=== PATIENT | male | born 1955 | race Hispanic/Latino ===

== ENCOUNTER → 2024-01-14 | Day surgery (SDC) | payer MEDICARE ==
[2024-01-11 09:56] LABS: BASOPHILS # (AUTO) 0.1 (0.0-0.1); BASOPHILS % 0.9 % (0.0-1.0); EOSINOPHILS # (AUTO) 0.2 (0.0-0.4); EOSINOPHILS % 2.5 % (0.0-6.0); HEMATOCRIT 42.6 % (38.2-49.6); LYMPHOCYTES # (AUTO) 2.4 (1.0-3.2); LYMPHOCYTES % 30.1 % (18.0-39.1); MEAN CORPUSCULAR HEMOGLOBIN 29.2 pg (28-32); MEAN CORPUSCULAR HGB CONC 32.9 g/dL (31-35); MEAN CORPUSCULAR VOLUME 88.8 fL (81-99); MONOCYTES # (AUTO) 0.7 (0.2-0.8); MONOCYTES % 8.7 % (4.4-11.3); NEUTROPHILS # (AUTO) 4.6 (2.1-6.9); NEUTROPHILS % 57.3 % (38.7-80.0); PLATELET COUNT 237 x10e3/uL (140-360); RED CELL DISTRIBUTION WIDTH 14.8 % (11.7-14.4); WHITE BLOOD COUNT 8.08 x10e3/uL (4.8-10.8)
[~2024-01-14] MED LIST: CRESTOR40 MG PO; FENTANYL CITRATE/PF 100MCG/2 ML INJ ONE; FLOMAX0.4 MG PO; SIMETHICONE 40 MG/0.6 ML BTL ONE
[2024-01-14] MEDS: LACTATED RINGER'S 1,000 ML ONE (06:02)
[2024-01-14 08:01] VITALS: TEMP 97
[2024-01-14 08:30] VITALS: BP 115/70; PULSE 70; RESP 14; O2SAT 98
== END | disposition home or self-care (01) ==
LOC: OR 05:10
PROVIDERS: ATTEND Internal Medicine Gastroenterology
DX: Z12.11 Encounter for screening for malignant neoplasm of colon (principal); K62.1 Rectal polyp; K52.9 Noninfective gastroenteritis and colitis, unspecified; K64.8 Other hemorrhoids; K21.9 Gastro-esophageal reflux disease without esophagitis; N40.0 Benign prostatic hyperplasia without lower urinary tract symptoms; E78.5 Hyperlipidemia, unspecified; Z01.810 Encounter for preprocedural cardiovascular examination; Z01.812 Encounter for preprocedural laboratory examination; Z79.899 Other long term (current) drug therapy
CPT/HCPCS: 36415; 45380; 85025; 86140; 93005; J3010; J7121; 45378